=== PATIENT | male | born 1985 | race Caucasian/White ===

== ENCOUNTER 2020-03-01 23:10 | Emergency (ER) | payer OTHER, SELFPAY ==
[2020-03-01 23:10] VITALS: BP 143/76; PULSE 107; RESP 16; TEMP 38.1; O2SAT 98; BMI 26.2
[2020-03-01 23:28] VITALS: BP 130/82; PULSE 104; RESP 15; TEMP 37.9; O2SAT 98
[2020-03-01 23:30] VITALS: BP 130/82; PULSE 104; RESP 15; TEMP 37.9; O2SAT 97
--- NOTE | 2020-03-01 23:38 | ED.VIS.GEN ---
History of Present Illness Chief Complaint: Fever Informant: Patient Narrative: Patient is a 35-year-old previously healthy male who presents to the emergency department for a fever. He states at home he took his temperature this afternoon and was at 102. He has not tried taking anything for this. He has had some body aches but denies any other symptoms. No known sick exposures. No known coronavirus exposure. He states that he was told to come to the emerge department by his for testing. She has comorbidities and she wanted to be sure he did not have COVID-19. Patient otherwise states he would not come into the emergency department. He denies any cough, cold, congestion. No sore throat or earache. No headache or neck pain. Chest pain or shortness of breath. He denies any abdominal pain. He has not really had an appetite but denies any nausea/vomiting. No change in smell or taste. Any urinary symptoms. No change in bowel habits including a diarrhea or constipation. No leg swelling or calf pain. He denies smoking, drinking or drug use. Past Medical History - Allergies and Home Meds Allergies/Adverse Reactions: Allergies No Known Allergies Allergy (Verified 06/15/15 20:11) Primary Care Physician: Care Physician,No Primary [Primary Care Provider] - 2 Days Prior records reviewed: Yes Surgical History: appendectomy Lives: Spouse/ Significant Other Smoking Status: Never smoker Alcohol: None Drugs: None Review of Systems All systems negative except as indicated General: Reports: Fever. Denies: Sweats Eyes: Denies: Visual changes - bilaterally, Diplopia ENT: Denies: Rhinorrhea, Sore throat Cardiovascular: Denies: Chest pain, Palpitations Respiratory: Denies: Dyspnea, Cough, Dyspnea on exertion Gastrointestinal: Denies: Abdominal pain, Nausea, Vomiting, Diarrhea, Melena, Hematochezia Genitourinary: Denies: Dysuria, Hematuria, Frequency Musculoskeletal: Reports: Myalgias. Denies: Back pain, Extremity Pain Skin: Denies: Rash, Wounds Neurological: Denies: Headache, Weakness, Numbness Physical Exam Vital Signs/Narrative: Vital Signs Temp Pulse Resp BP Pulse Ox 03/01/20 23:30 100.3 F H 104 H 15 130/82 H 97 03/01/20 23:28 100.3 F H 104 H 15 130/82 H 98 03/01/20 23:10 100.6 F H 107 H 16 143/76 H 98 Inital Vital Signs reviewed: Yes General: Well nourished, Well developed, No Acute Distress Head: Normocephalic, Atraumatic Eyes: Perrl, EOMI ENT: Moist mucous membranes, No rhinorrhea, TM's clear Neck: Supple, Nontender, No lymphadenopathy Cardiovascular: Regular rate, Regular rhythm, No murmurs Respiratory: No distress, CTA bilaterally, Chest nontender Abdomen: Soft, Nontender, Nondistended, Normal bowel sounds Back: Nontender, Normal Inspection Extremities: Nontender, No edema Skin: Normal color, No rash Neurological: Alert, Oriented x3, Cranial nerves II-XII grossly intact, Normal Strength, Normal Sensation Psychological: Normal affect, Normal Mood Diagnostic/Tx/Re-eval - Medical Decision Making Patient presents to the emerge department for fever. Upon arrival to the emergency department he has a low-grade fever and is mildly tachycardic. Otherwise very benign physical exam. He is nontoxic-appearing. He only wants to have the coronavirus testing. I did offer chest x-ray and further work-up but he is refusing at this time. I did also offer him a Tylenol but he is refusing this as well stating he has it at home. We will do the coronavirus test and discharge home in stable condition. He is to self isolate until test results come back. Patient develops any other symptoms and he develops any concerning symptoms he can return to the emergency department at any time. He otherwise is to follow-up with his PCP. At this time will discharge home in stable condition. He can treat his fever at home with Tylenol. He understands and is agreeable this plan. ED Disposition - Plan for ED Patient: Disposition: Home or Assisted Living Diagnosis: Fever Instructions: ED Fever Control (Adult) Referrals: Care Physician,No Primary [Primary Care Provider] - 2 Days Additional Instructions: Please self isolate until coronavirus test is back. If you develop any worsening symptoms you can return to the emergency department anytime for further evaluation.
[2020-03-02 00:32] VITALS: BP 122/70; PULSE 99; RESP 18; O2SAT 98
--- NOTE | 2020-03-02 00:32 | ED.RN ---
pt given pamphlet on how to access medical records for test results. pt verbalizes understanding
[2020-03-02 01:35] LABS: Probe Check PASS; Specimen Processing Control PASS
== END 2020-03-02 00:33 | disposition home or self-care (01) ==
LOC: ED 23:47
PROVIDERS: Emergency Provider Emergency Medicine
DX: R50.9 Fever, unspecified (principal); R00.0 Tachycardia, unspecified
CPT/HCPCS: 87635; 94799; 99282; U0003

== ENCOUNTER 2022-03-30 22:30 | Emergency (ER) | payer OTHER, SELFPAY ==
[2022-03-30 22:31] VITALS: BP 129/70; PULSE 98; RESP 18; TEMP 36.8; O2SAT 97; BMI 26.6
--- NOTE | 2022-03-30 22:55 | EDS_ITS ---
HPI History of Present Illness Chief Complaint: Allergic Reaction Narrative Narrative: Patient is a 37-year-old male with no significant past medical history. He states he was outside approximately an hour and a half ago and he was stung approximately 5 times. He states after this he felt lightheaded for a few minutes and then took 50 mg of oral Benadryl. He states after doing this he felt better and he denies any difficulty breathing or swallowing. He states however that his wanted him to come in for evaluation because of his exposure and symptoms prior to taking the Benadryl and therefore he presents for evaluation. PFSH PFSH Medical History no medical history no medical history Home Medications NK 03/01/20 [History Last Taken Unknown] Allergy/AdvReac Type Severity Reaction Status Date / Time No Known Allergies Allergy Verified 03/30/22 22:34 Social History Smoking Status: Never smoker ROS ROS ED Constitutional Constitutional ED: Denies chills or fever(s) ENT ENT ED: Denies sore throat Cardiovascular Cardiovascular: Denies chest pain Respiratory/Chest Respiratory/Chest: Denies cough or dyspnea Gastrointestinal Gastrointestinal: Denies abdominal pain, diarrhea, nausea or vomiting Genitourinary Genitourinary ED: Denies dysuria Musculoskeletal Musculoskeletal: Denies myalgias Integumentary Reports rash Neurologic Neurologic: Denies headache(s) Hematologic/Lymphatic Hematologic/Lymphatic: Denies easy bleeding or easy bruising EXAM Physical Exam Const Vital Signs: 03/30/22 22:31 Temperature 98.3 F Temperature Source Temporal Pulse Rate 98 Respiratory Rate 18 Blood Pressure 129/70 H Blood Pressure Mean 89 Pulse Ox 97 Oxygen Delivery Method Room Air Positive well nourished and well developed General Appearance ED: well developed HEENT Reports moist mucous membranes HEENT Narrative: No tongue or lip swelling no oral lesions no airway edema or compromise Eyes PERRL and EOMs intact bilaterally Neck supple Resp normal respiratory effort and clear to auscultation bilaterally Resp Narrative: No nasal flaring retractions tachypnea or accessory muscle use Cardio regular rate and regular rhythm Extremity normal to inspection Neuro oriented x3 and CN's II-XII intact bilaterally Sensorium / Orientation: alert Psych mental status grossly normal Skin Skin Narrative: Patient has hive-like lesions across the anterior chest and upper arm consistent with insect sting without secondary changes to suggest infection. No retained stinger noted MDM MDM MDM Narrative Medical decision making narrative: Patient presented to the ER with stable vitals and no signs of respiratory distress. He treated himself appropriately at home after the reaction/exposure. He stated he just felt kind of lightheaded at home prior to taking the Benadryl but denied any difficulty breathing or swallowing and on exam there is no anaphylactic changes. Therefore do not feel there is need for epinephrine. I discussed with patient giving him Pepcid and prednisone to complete the allergic reaction cocktail. Patient states he feels perfectly fine at this time and therefore with low concern for progression of respiratory distress or need for epinephrine patient will be discharged home Discharge Plan Triage Chief Complaint: Allergic Reaction ED Provider: Armin Fuentes Dx/Rx/DC Orders Clinical Impression: Allergic reaction to insect sting Instructions: ED Insect Sting, Local Reaction Prescriptions: No Action NK Primary Care Provider: Care Physician,No Primary Referrals: Ivon Bar, [Med Staff - Radio Technician] - 3-5 Days if not improving Care Physician,No Primary [Primary Care Provider] - Activity Restrictions/Additional Instructions: You may continue to take 125 mg Benadryl up to 3 times a day and add 120 mg Pepcid twice a day if allergic reaction symptoms continue. If you have any further concerns or worsening of symptoms please return to the ER for repeat evaluation Disposition Disposition: Home, Self Care
== END 2022-03-30 23:17 | disposition home or self-care (01) ==
LOC: ED 23:02
PROVIDERS: Emergency Provider Emergency Medicine; PCP Registered Nurse; Visit Provider Emergency Medicine
DX: L50.0 Allergic urticaria (principal); R42 Dizziness and giddiness; S20.369A Insect bite (nonvenomous) of unspecified front wall of thorax, initial encounter; S40.869A Insect bite (nonvenomous) of unspecified upper arm, initial encounter; W57.XXXA Bitten or stung by nonvenomous insect and other nonvenomous arthropods, initial encounter; Y93.9 Activity, unspecified; Y99.9 Unspecified external cause status; Y92.009 Unspecified place in unspecified non-institutional (private) residence as the place of occurrence of the external cause
CPT/HCPCS: 99281; 99282